=== PATIENT | female | born 1975 | race Two or more races ===

== ENCOUNTER 2016-12-08 16:29 | Emergency (ER) | payer OTHER ==
[~2016-12-08] VITALS: Ht 165.1 cm; Wt 77.1 kg
[2016-12-08] MEDS ORDERED: fentaNYL PF VIAL 100 MCG/2 ML VIAL IV ONE (17:00)
[2016-12-08] MEDS ORDERED: ONDANSETRON PF 4 MG/2 ML VIAL. IV ONE (17:00)
[2016-12-08 17:12] LABS: BILIRUBIN,URINE NEGATIVE (NEG); GLUCOSE,URINE NEGATIVE (NEG); NITRITE,URINE NEGATIVE (NEG); PH,URINE 7.5; PROTEIN,URINE NEGATIVE (NEG-TRACE)
[2016-12-08 17:14] LABS: BASO # 0.1 x10^3/uL (0.0-0.2); BASO % 1 % (0-3); EOS % 1 % (0-3); HEMATOCRIT 40.6 % (36.0-47.0); HEMOGLOBIN 13.4 g/dL (12.0-15.5); LYMPH # 2.1 x10^3/uL (1.0-4.8); LYMPH % 15 % (24-48); MEAN CORPUSCULAR HEMOGLOBIN 29 pg (25-35); MEAN CORPUSCULAR HGB CONC 33 g/dL (31-37); MEAN CORPUSCULAR VOLUME 86 fL (79-100); MONO % 6 % (0-9); NEUT % 78 % (31-73); PLATELET COUNT 201 x10^3/uL (140-400); RED CELL DISTRIBUTION WIDTH 13.9 % (11.5-14.5); WHITE BLOOD COUNT 14.2 x10^3/uL (4.0-11.0)
[2016-12-08 17:22] LABS: CALCIUM 8.8 mg/dL (8.5-10.1); CREATININE 0.7 mg/dL (0.6-1.0); GFR 92.2; POTASSIUM 3.6 mmol/L (3.5-5.1)
[2016-12-08 17:25] LABS: NEG OBC SER NEG; POS OBC SER POS
[2016-12-08 17:29] LABS: ALBUMIN 3.7 g/dL (3.4-5.0); ALBUMIN/GLOBULIN RATIO 0.9 (1.0-1.7); TOTAL BILIRUBIN 0.3 mg/dL (0.2-1.0)
[2016-12-08 17:41] LABS: BACTERIA,URINE MODERATE /HPF (0-FEW); RBC,URINE RARE /HPF (0-2); SQUAMOUS EPITHELIAL CELL,UR MOD /LPF
[2016-12-08] MEDS ORDERED: IOHEXOL 300 MG/ML 75 ML VIAL IV ONE (17:45)
--- NOTE | 2016-12-08 18:17 | RAD ---
CT Abdomen and Pelvis With Intravenous Contrast: History: Right lower quadrant pain. Comparison: None. Technique: After administration of intravenous contrast administration, 75 mL Omnipaque-300, CT of the abdomen and pelvis was performed. There was infiltration of intravenous contrast at IV site. Exposure: One or more of the following individualized dose reduction techniques were utilized for this examination: 1. Automated exposure control 2. Adjustment of the mA and/or kV according to patient size 3. Use of iterative reconstruction technique Findings: Evaluation of enteric structures may be limited by lack of oral contrast. Images of lower chest demonstrate presence of multiple soft tissue pulmonary nodules measuring up to 7 mm (axial image 7). Liver, spleen, pancreas, gallbladder, and bilateral adrenal glands are unremarkable. Bilateral kidneys have symmetric appearance and enhance symmetrically. No bowel obstruction or inflammation is identified. Appendix is without evidence of inflammation. Urinary bladder is unremarkable. No free air or significant free fluid is seen in the abdomen or pelvis. Uterus and adnexa have unremarkable CT appearance. Impression: 1. Multiple soft tissue pulmonary nodules measuring up to 7 mm. By Fleischner 2017 guidelines, recommend follow-up CT in 3-6 months. 2. No acute abnormality identified in the abdomen or pelvis. Electronically signed by: Edson Cortes MD (12/08/2016 6:14 PM) [facility]
[2016-12-08 19:09] VITALS: BP 116/71
--- NOTE | 2016-12-08 19:41 | PHYS DOC ---
Past Medical History Past Medical History: No Pertinent History Past Surgical History: No Surgical History Alcohol Use: None Drug Use: None Adult General Chief Complaint Chief Complaint: ABDOMINAL PAIN [facility] HPI Patient is a 41 year old female presents with diffuse lower abdominal pain starting 3 hours prior to ED arrival. Pain is described as sharp and cramping rated moderate to severe as with palpation and movement. Patient denies fever, nausea, vomiting, flank pain, hematuria dysuria, urinary frequency. Last menstrual period was 2 weeks ago. Denies history of ovarian cysts. Patient uses condoms as her preferred control method. No prior abdominal surgeries. No other acute symptoms or complaints. Review of Systems Review of Systems ROS as per HPI. All other ROS are negative. Current Medications Current Medications Current Medications Medications (Trade) Dose Ordered Sig/Jf Start Time Stop Time Status Last Admin Dose Admin Fentanyl Citrate (Fentanyl 2ml Vial) 75 mcg 1X ONCE 12/08/16 17:00 12/08/16 17:01 DC 12/08/16 17:06 75 MCG Iohexol (Omnipaque 300 Mg/ml) 75 ml 1X ONCE 12/08/16 17:45 12/08/16 17:46 DC 12/08/16 17:49 75 ML Ondansetron HCl (Zofran) 4 mg 1X ONCE 12/08/16 17:00 12/08/16 17:01 DC 12/08/16 17:05 4 MG Allergies Allergies Allergies Coded Allergies Type Severity Reaction Last Updated Verified No Known Drug Allergies 12/08/16 No Physical Exam Physical Exam Constitutional: Well developed, well nourished, alert discomfort secondary to pain.. [] HENT: Normocephalic, atraumatic, bilateral external ears normal, oropharynx moist, no oral exudates, nose normal. [] Eyes: PERRLA, EOMI, conjunctiva normal, no discharge. [] Neck: Normal range of motion, no tenderness, supple, no stridor. [] Cardiovascular:Heart rate regular rhythm, no murmur [] Lungs & Thorax: Bilateral breath sounds clear to auscultation [] Abdomen: Bowel sounds normal, soft, right lower quadrant pain, tenderness, voluntary guarding.. [] Skin: Warm, dry, no erythema, no rash. [] Back: No tenderness, no CVA tenderness. [] Extremities: No tenderness, no cyanosis, no clubbing, ROM intact, no edema. [] Neurologic: Alert and oriented X 3, normal motor function, normal sensory function, no focal deficits noted. [] Psychologic: Affect normal, judgement normal, mood normal. [] Current Patient Data Vital Signs Vital Signs Date Time Temp Pulse Resp B/P (MAP) Pulse Ox O2 Delivery O2 Flow Rate FiO2 12/08/16 18:09 81 20 119/73 (88) 96 Room Air 12/08/16 16:46 98.3 98.3 Lab Values Laboratory Tests Test 12/08/16 16:44 12/08/16 17:00 POC Urine HCG, Qualitative Hcg negative (Negative) White Blood Count 14.2 x10^3/uL (4.0-11.0) H Red Blood Count 4.70 x10^6/uL (3.50-5.40) Hemoglobin 13.4 g/dL (12.0-15.5) Hematocrit 40.6 % (36.0-47.0) Mean Corpuscular Volume 86 fL (79-100) Mean Corpuscular Hemoglobin 29 pg (25-35) Mean Corpuscular Hemoglobin Concent 33 g/dL (31-37) Red Cell Distribution Width 13.9 % (11.5-14.5) Platelet Count 201 x10^3/uL (140-400) Neutrophils (%) (Auto) 78 % (31-73) H Lymphocytes (%) (Auto) 15 % (24-48) L Monocytes (%) (Auto) 6 % (0-9) Eosinophils (%) (Auto) 1 % (0-3) Basophils (%) (Auto) 1 % (0-3) Neutrophils # (Auto) 11.0 x10^3uL (1.8-7.7) H Lymphocytes # (Auto) 2.1 x10^3/uL (1.0-4.8) Monocytes # (Auto) 0.8 x10^3/uL (0.0-1.1) Eosinophils # (Auto) 0.1 x10^3/uL (0.0-0.7) Basophils # (Auto) 0.1 x10^3/uL (0.0-0.2) Urine Collection Type Void Urine Color Yellow Urine Clarity Clear Urine pH 7.5 Urine Specific [place] 1.020 Urine Protein Negative mg/dL (NEG-TRACE) Urine Glucose (UA) Negative mg/dL (NEG) Urine Ketones (Stick) Negative mg/dL (NEG) Urine Blood Negative (NEG) Urine Nitrite Negative (NEG) Urine Bilirubin Negative (NEG) Urine Urobilinogen Dipstick 1.0 mg/dL (0.2 mg/dL) Urine Leukocyte Esterase Small (NEG) Urine RBC Rare /HPF (0-2) Urine WBC 1-4 /HPF (0-4) Urine Squamous Epithelial Cells Mod /LPF Urine Bacteria Moderate /HPF (0-FEW) Urine Mucus Slight /LPF Sodium Level 139 mmol/L (136-145) Potassium Level 3.6 mmol/L (3.5-5.1) Chloride Level 102 mmol/L (98-107) Carbon Dioxide Level 27 mmol/L (21-32) Anion Gap 10 (6-14) Blood Urea Nitrogen 15 mg/dL (7-20) Creatinine 0.7 mg/dL (0.6-1.0) Estimated GFR (Cockcroft-Gault) 92.2 BUN/Creatinine Ratio 21 (6-20) H Glucose Level 92 mg/dL (70-99) Calcium Level 8.8 mg/dL (8.5-10.1) Total Bilirubin 0.3 mg/dL (0.2-1.0) Aspartate Amino Transferase (AST) 15 U/L (15-37) Alanine Aminotransferase (ALT) 23 U/L (14-59) Alkaline Phosphatase 63 U/L (46-116) Total Protein 8.0 g/dL (6.4-8.2) Albumin 3.7 g/dL (3.4-5.0) Albumin/Globulin Ratio 0.9 (1.0-1.7) L Lipase 109 U/L (73-393) Serum Test, Qualitative Negative (NEG) Laboratory Tests 12/08/16 17:00 Laboratory Tests 12/08/16 17:00 EKG EKG [] Radiology/Procedures Radiology/Procedures [CT abdomen pelvis: Pulmonary nodules present, no acute intra-abdominal process per radiology report.] Course & Med Decision Making Course & Med Decision Making Pertinent Labs and Imaging studies reviewed. (See chart for details) [Patient's abdominal pain resolved after treatment. Patient noted to have elevation of blood cell count without acute findings on CT of the abdomen and pelvis. Will discharge patient home with watchful waiting and tractions to return the ED in 24 hours for reevaluation symptoms persist, sooner if worse. Of note, there were multiple pulmonary nodules present on the CT of the abdomen pelvis. I did discuss these findings in detail with the patient and instructions that she would need to follow up with her primary care provider and arrange for this outpatient CT in 3-6 months to rule out pulmonary malignancy. Patient verbalizes understanding agreement with all discharge instructions prior to departure.] Dragon Disclaimer Dragon Disclaimer This electronic medical record was generated, in whole or in part, using a voice recognition dictation system. Departure Departure Impression: Primary Impression: Abnormal CT of the abdomen Additional Impression: Abdominal pain Disposition: HOME, SELF-CARE Condition: GOOD Patient Instructions: Abdominal Pain, [id number] Additional Instructions: You were evaluated in the emergency department for abdominal pain. Lab work and imaging studies were performed. The exact cause of your pain has not been determined. Return to the ED if 24 hours if symptoms persist or sooner if abdominal persist. Return sooner symptoms worsen. Please follow-up with your PCP in 1-2 weeks reviewed. Pulmonary nodules were found on the CT which require an outpatient CT chest in the next 3-6 months to be arranged by your primary care physician. Problem Qualifiers LAM PARK DO Dec 08, 2016 19:41
== END 2016-12-08 19:37 | disposition home or self-care (01) ==
LOC: ER 16:29
DX: R93.5 Abnormal findings on diagnostic imaging of other abdominal regions, including retroperitoneum (principal); R10.31 Right lower quadrant pain
CPT/HCPCS: 36415; 74177; 80053; 81001; 81025; 83690; 84703; 85025; 87086; 87186; 96374; 96375; 99285; J2405; J3010; Q9967